=== PATIENT | male | born 2005 | race Caucasian/White ===

== ENCOUNTER → 2024-02-15 14:11 | Outpatient (REF) | payer OTHER, SELFPAY | LOC: DHSLP 14:11 | PROVIDERS: ATTENDING PHYSICIAN Nurse Practitioner Family | DX: G47.33 Obstructive sleep apnea (adult) (pediatric) (principal); R06.83 Snoring | CPT/HCPCS: 95800 ==

== ENCOUNTER 2024-03-25 19:09 | Emergency (ER) | payer OTHER, SELFPAY ==
[2024-03-25 19:15] VITALS: BP 168/98
[2024-03-25 21:49] VITALS: BMI 29.4
[2024-03-25 22:00] VITALS: BP 158/79
--- NOTE | 2024-03-25 22:24 | ED.GENMED ---
History of Present Illness
General
Chief Complaint: Male Genito-Urinary Symptoms
Time Seen by Provider: 03/25/24 21:48
History of Present Illness
History of Present Illness:
19-year-old male without significant past medical history presenting for concern of redness on his penis. Notes that he noticed it after sexual intercourse with his girlfriend. Denies concern for STD. Denies any penile discharge. Believes that
he suffered an abrasion from the intercourse and has had pain at the area. Denies pain to the testicles. Denies abdominal pain. Denies fever. Denies additional medical complaints
Past History
Past History
ED Past Medical History: None
ED Past Surgical History: Other (Eye surgery)
Social History
Tobacco: Non-smoker
Alcohol: None
Personal: Single
Living: with family
Phy Exam
Physical Exam
Physical Exam:
General: Well-appearing, no clinical signs of dehydration, nontoxic and in no acute distress
HEENT: protecting airway
Neck: appears supple
CV: Normal heart rate
Resp: No accessory muscle use, no increased work of breathing
Abd: no distension
Extremities: No deformities, no swelling
Neuro: alert, no focal neurologic deficit
: Small abrasion to the right side of the shaft of the penis. No swelling. No lesions. No discharge
Rectal: deferred
Psych: Normal affect
Skin: Intact
Course
Vital Signs
Initial and Last Documented VS:
Initial Vital Signs
Temp Pulse Resp BP Pulse Ox
97.4 F 78 16 168/98 98
03/25/24 19:15 03/25/24 19:15 03/25/24 19:15 03/25/24 19:15 03/25/24 19:15
Last Documented Vital Signs
Temp Pulse Resp BP Pulse Ox
97.4 F 78 16 168/98 99
03/25/24 19:15 03/25/24 19:15 03/25/24 19:15 03/25/24 19:15 03/25/24 21:49
MDM/Problems Addressed
MDM/Problems Addressed:
19-year-old male presenting for concern of abrasion to the penis. Vital signs are normal
On exam patient is well-appearing, no acute distress or discomfort. On examination of the penis, small abrasion to the right side of the chest. No lesion. No significant break in the skin. At this time suspect likely from the active sexual
intercourse. Patient offered STD testing, declined. At this time feel that he is stable for discharge with outpatient supportive therapy. Advised using a triple antibiotic ointment or Vaseline to the area to aid with healing to avoid sexual
intercourse until healed. Return precautions discussed and patient verbalized understanding
*Critical Care Note
Total Time (30-74mins, 75-104mins- exclusive of procedures): Not Applicable
ED Attending Note
-
Portions of this chart may have been created with voice recognition software.� Occasional wrong word or��sound alike� substitutions may have occurred due to the inherent limitations of voice recognition software.
Discharge Plan
Departure
Prescriptions:
No Action
naproxen sodium [Aleve] 220 MG tablet
2 tab PO PRN PRN (Reason: pain)
naproxen [Naprosyn] 500 MG tablet
500 mg PO BID Qty: 30 0RF
Referrals:
NONE,* [Family Provider] -
Interventions
Interventions:
*Risk Screen - Suicide Last Done: 03/25/24 19:15
*General Assessment Last Done: 03/25/24 21:49
*Neglect/Abuse Screening Last Done: 03/25/24 19:19
ED- Fall Risk Assessment Last Done: 03/25/24 21:49
*ED COVID-19 Vaccine History Last Done: 03/25/24 21:57
ED-Male Genitourinary Assessment Last Done: 03/25/24 21:49
Discharge Date and Time
Print Language: IRAQI
== END 2024-03-25 23:14 | disposition home or self-care (01) ==
LOC: EMR 19:09
PROVIDERS: EMERGENCY PHYSICIAN Student in an Organized Health Care Education/Training Program
DX: S30.812A Abrasion of penis, initial encounter (principal); X58.XXXA Exposure to other specified factors, initial encounter
CPT/HCPCS: 99282